=== PATIENT | male | born 1970 | race Caucasian/White ===

== ENCOUNTER 2021-06-28 20:22 | Emergency (ER) | payer OTHER, SELFPAY ==
--- NOTE | ~2021-06-28 | CT_ITS ---
EXAMINATION: CT HEAD WITHOUT CONTRAST CT CERVICAL SPINE WITHOUT CONTRAST CLINICAL INFORMATION: Fall, occipital injury, neck pain. COMPARISON: None. TECHNIQUE: Contiguous axial imaging was performed from the skull base to vertex without intravenous administration of contrast. Contiguous axial imaging was performed from the upper chest through the skull base without intravenous administration of contrast. Coronal and sagittal reformats were obtained at the acquisition workstation. This CT examination was performed using dose optimization techniques as appropriate, variously including the following: *Automated exposure control *Adjustment of mA and/or kV according to patient size (this includes techniques or standardized protocols for targeted exams where dose is matched to indication/reason for exam; i.e. extremities or head) *Use of iterative reconstruction technique DLP: 580 mGy-cm FINDINGS: Head: There is no evidence of acute intracranial hemorrhage or edematous territorial infarction. There is no abnormal attenuation within the brain parenchyma. Weiss-white matter differentiation is preserved. The ventricles are normal in size and configuration. No evidence for obstructive hydrocephalus. No abnormal mass effect or midline shift. No extra-axial fluid collections. No acute soft tissue or osseous abnormalities. The mastoid air cells and paranasal sinuses are clear. Cervical Spine: The atlantooccipital and atlantoaxial articulations remain well aligned. Straightening of the normal cervical lordosis. Otherwise, there is anatomic alignment of the vertebral bodies and posterior elements. No evidence of acute fracture or subluxation. Moderate multilevel cervical spondylosis with disc space narrowing, osteophytes and uncovertebral hypertrophy leading to varying degrees of neural foraminal narrowing and central canal stenosis. There is no prevertebral soft tissue swelling. The thyroid gland and remaining cervical soft tissues are normal in appearance. The lung apices demonstrate no abnormalities. CT/CT cervical spine wo con IMPRESSION: 1. No acute intracranial pathology. 2. No acute cervical spinal fractures or malalignment. 3. Moderate cervical spondylosis.
[2021-06-28 20:51] VITALS: BP 141/97; PULSE 68; RESP 16; TEMP 36.1; O2SAT 98; BMI 29.9
--- NOTE | 2021-06-28 21:24 | ED_ITS ---
HPI - Fall General Chief Complaint: Fall Stated Complaint: fell hit back of head Time Seen by Provider: 06/28/21 21:21 Source: patient Mode of arrival: ambulatory Limitations: no limitations History of Present Illness HPI Narrative: 51-year-old male who presents emergency department for evaluation of headache and neck pain after a fall. The patient [place] ice rink. He was on a flat surface which was icey. He states that his legs when out from under him and he fell backwards landing on the back of his head. The patient had no loss consciousness but he states that he saw a ?flash ?. Patient states that a bout 30 minutes after the injury he then had difficulty concentrating he states that his brain felt ?foggy ?. He states that he then developed a dull headache behind his eyes which initially was intermittent but then became constant. The pain is 7/10 at the time of evaluation. He denied nausea, vomiting, numbness or weakness. He is also complaining of pain in his neck. He believes that he may had a whiplash-type injury. He states the pain is located in his trapezius muscles and all over his neck. The pain is worse if he turns his head to the right. Patient was able to walk after the injury and was walking in the emergency department. 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 Related Data Previous Rx's Medication Instructions Recorded methocarbamol 500 mg tablet 1,000 mg PO QID PRN 5 Days #30 tab 06/28/21 Allergies Allergy/AdvReac Type Severity Reaction Status Date / Time No Known Allergies Allergy Verified 06/28/21 20:57 Review of Systems Review of Systems: Yes all other systems are reviewed and are negative [facility] Past Medical History [facility] Narrative: Past medical history: None. Past surgical history: None. Social history: The patient denies tobacco use. He does drink alcohol but he states that he was not drinking alcohol this evening. Denies drug use. 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 Medical History No known health problems Social History Social History Advance Directives: No Advance Directives Information Provided: No Physical Exam Vital Signs: Vital Signs: Last Vital Signs Temp 96.9 F 06/28/21 20:51 Pulse 68 06/28/21 20:51 Resp 16 06/28/21 20:51 BP 141/97 H 06/28/21 20:51 Pulse Ox 98 06/28/21 20:51 BMI result Body Mass Index 29.9 Const: General: cooperative and no acute distress Orientation/consciousness: oriented to person and oriented to place Limitations: no limitations HENMT: Head: Yes normal to inspection, Yes normocephalic and Yes atraumatic (Small occipital hematoma, moderate tenderness) Ears: external ears normal and other (No hematotympanum) General nose exam: Normal external nose present Face and sinus: Yes normal facial exam Mouth: Normal oral and palatal mucosa present Throat: Yes posterior oropharynx normal Eyes: General: appearance normal, both eyes and all related structures Pupils: Equal, round and reactive pupils present Neck: Other: Tender trapezius muscles bilaterally, no spasm, tenderness over the entire cervical spine Neck: Yes normal visual inspection, Yes no lymph adenopathy and Yes trachea midline Chest: Chest palpation & inspection: normal inspection of the chest and normal palpation of entire chest wall Resp: Effort & Inspection: normal respiratory effort and able to speak in complete sentences Auscultation: clear to auscultation bilaterally Cardio: Rate: regular rate Rhythm: regular rhythm Heart sounds: S1 norm al heart sound present, S2 normal heart sound present and no murmurs GI: Inspection: Yes normal to inspection Palpation (GI): Soft to palpation, nontender and no guarding Auscultation: normal bowel sounds : General: Yes no CVA tenderness Back/Spine/Pelvis: Back: no CVA tenderness Skin: General skin exam: no rashes or lesions noted Neuro: General: oriented to person and oriented to place Cranial nerves: Yes CN's II-XII intact bilaterally and Yes Equal, round and reactive pupils present Cognition (Neuro): normal cognition Motor exam (neuro): 5/5 motor strength present throughout Extrem: General: Yes normal to inspection Psych: Appearance: grossly normal Speech and movement: Normal speech and movement present Affect: normal affect Attitude: cooperative Thought process: Normal thought process present Thought content: Normal thought content present Course Course Course Narrative: 51-year-old male who presents emergency department for evaluation a slip on ice with a fall backwards striking the back of his head on a steel floor. The patient had no loss of consciousness but did see a flash immediately after striking his head. [id number] minutes after the injury he developed a headache which is a dull ache behind his eyes and is constant, 7/10 at its worst. He also has neck pain. His examination did reveal tenderness and a hematoma to the occipital area of his scalp and tenderness with palpation of his C-spine and trapezius muscles bilaterally. I ordered a CT scan of the head and cervical spine. 2020: The CT scan of the patient's head and cervical spine were negative for any significant pathology. I did discuss this with the patient. The patient is still having a headache which is 7/10 but he states that he will take Tylenol at home. The patient was advised to take extra-strength Tylenol 1000 mg every 4-6 hours for the next 24 hours. After that he can add ibuprofen 600 mg 3 times a day as needed for pain and Robaxin for spasm. The patient was given printed and verbal instructions on head injury , neck pain and discharged home. Discharge Plan Discharge Clinical Impression: Fall, Head injury, Hematoma of occipital region of scalp, Acute neck sprain Patient Disposition: Home, Self-Care Instructions: Head Injury (ED), Cervical Sprain (ED) Additional Instructions: Discharge Instructions: Take Tylenol (acetaminophen) 500 mg pills, 2 pills every 6 hours as needed for pain for the next 24 hours. After 24 hours continue to take Tylenol but you can also take the following medications: Take Motrin (ibuprofen) 200 mg pills, 3 pills every 6 hours as needed for pain. Take Robaxin (methocarbamol) 5 mg pills, 2 pill every 4 times a day as needed for pain or muscle spasm. This is a prescription medication. This medication will make you sleepy, therefore do not drive or work while taking this medication. Apply ice for 15 minutes to the area that hurts on your head and neck 15 minutes. Do this 4-6 times a day to help reduce the pain in these areas. Continue with normal activities as tolerated since staying in bed and not moving around will make your pain worse. You had a concussion. You should avoid any physical activity that would lead to another head injury for at least 1 week after your symptoms rule all completely. Please return to the Emergency Department or see your doctor immediately if your symptoms get worse or if you develop any new symptoms that are concerning you. Follow up with your doctor in 2 day. Please read the other printed discharge instructions on head injury and cervical sprain. Prescriptions: New methocarbamol 500 mg tablet 1,000 mg PO QID PRN (Reason: Neck pain, spasm) 5 Days Qty: 30 RF: 0
== END 2021-06-28 23:07 | disposition home or self-care (01) ==
PROVIDERS: Emergency Provider Emergency Medicine Emergency Medical Services
DX: S00.03XA Contusion of scalp, initial encounter (principal); G44.309 Post-traumatic headache, unspecified, not intractable; M54.2 Cervicalgia; W00.0XXA Fall on same level due to ice and snow, initial encounter; Y93.21 Activity, ice skating; Y92.330 Ice skating rink (indoor) (outdoor) as the place of occurrence of the external cause; Y99.8 Other external cause status; Z79.899 Other long term (current) drug therapy
CPT/HCPCS: 70450; 72125; 99283; 99284